=== PATIENT | female | born 2000 | race Caucasian/White ===

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

== ENCOUNTER → 2021-04-06 15:17 | Outpatient (CLI) | payer MEDICAID, SELFPAY ==
--- NOTE | 2021-04-06 15:17 | US_ITS ---
PROCEDURE: US TRANSVAGINAL CLINICAL INDICATION: pelvic pain COMPARISON: No exams were available for comparison FINDINGS: UTERUS: 7cm x 5cmx 4cm with a combined endometrial thickness of 3 mm. No uterine mass apparent. LEFT OVARY: [id number] with a volume of 3.1ml. RIGHT OVARY: [id number] with a volume of 4.1ml. There are small bilateral ovarian follicles. Bilateral ovarian blood flow is present. No cul-de-sac fluid. IMPRESSION: Unremarkable pelvic ultrasound Dictated by: Steve Ventura MD 04/06/2021 17:12 Steve Ventura MD in [place] 04/06/2021 17:12
== END ==
PROVIDERS: Visit Provider Obstetrics & Gynecology
DX: R10.2 Pelvic and perineal pain (principal)
CPT/HCPCS: 76830